=== PATIENT | male | born 1975 | race Caucasian/White ===

== ENCOUNTER 2023-11-10 13:41 | Emergency (ER) | payer OTHER, SELFPAY ==
[2023-11-10] VITALS (27 sets, daily range): BP systolic 158–197; BP diastolic 96–119; PULSE 64–90; RESP 20–24; TEMP 36.1–36.9; O2SAT 92–99; BMI 32.9
[2023-11-10] MEDS: SIMETHICONE/SOD BICARB/CIT AC 1 EACH GRAN.EF.PK PO (13:55)
--- NOTE | 2023-11-10 14:03 | CRLHL7_ITS ---
For Patients: As a result of the Cures Act, medical imaging exams and procedure reports are released immediately into your electronic medical record. You may view this report before your referring provider. If you have questions, please contact your health care provider. INDICATION: Chest pain. Food impaction. COMPARISON: None available. TECHNIQUE: 1 view. FINDINGS: The patient is slightly rotated rightward. Medical Devices: None. Lung Volumes: Adequate inspiration. No significant atelectasis. Lungs: Clear lungs. Pleura and Pleural spaces: No significant pleural effusion. No pneumothorax. Mediastinum: Normal cardiomediastinal silhouette. Bony Thorax and Soft Tissues: No radiopaque foreign body is identified. IMPRESSION: No acute findings. Dictated by Chacorta Diaz MD @ 11/10/2023 2:24:05 PM (Electronically Signed)
[2023-11-10 14:14] LABS: Lactate Sepsis w/Reflex* 3.3 mmol/L (0.5-1.9)
[2023-11-10 14:16] LABS: Basophils Absolute Auto 0.04 K/uL (0.00-0.30); Basophils Percent Auto 0.4 % (0.0-3.0); Eosinophils Absolute Auto 0.51 K/uL (0.00-0.50); Eosinophils Percent Auto 5.3 % (0.0-7.0); Hematocrit 45.8 % (37.0-53.0); Hemoglobin* 15.8 gm/dL (13.5-17.5); Immature Granulocytes Abs Auto 0.03 K/uL (0.00-0.30); Immature Granulocytes Pct Auto 0.3 %; Lymphocytes Absolute Auto 3.67 K/uL (0.90-2.90); Lymphocytes Percent Auto 38.2 % (20-44); Mean Corpuscular HGB Conc 35 gm/dL (32-36); Mean Corpuscular Hemoglobin 31 pg (26-34); Mean Corpuscular Volume 89 fL (80-100); Monocytes Percent Auto 7.3 % (0.0-11.0); Neutrophils Absolute Auto 4.65 K/uL (1.7-7.0); Neutrophils Percent Auto 48.5 % (42.0-72.0); Platelet Count* 254 K/uL (140-440); RDW Coefficient of Variation % 12.5 % (11.5-15.5); Red Blood Count 5.16 m/uL (4.30-5.90)
[2023-11-10] MEDS: 0.9 % SODIUM CHLORIDE 1000 ml 1,000 ML IV (14:16)
[2023-11-10] MEDS: ONDANSETRON 2 MG/ML inj 4 MG IVP (14:16)
[2023-11-10] MEDS: MORPHINE 4 MG/ML INJ IVP ×2 (14:16→17:05)
[2023-11-10 14:21] LABS: Slide Review Reflex No
[2023-11-10 14:32] LABS: Chloride* 102 mmol/L (96-114); Sodium* 137 mmol/L (135-149)
[2023-11-10 14:35] LABS: Est. Creatinine Clearance* 82.63; Estimated Glomerular Filt Rate 92 ml/min
[2023-11-10 14:36] LABS: Blood Urea Nitrogen* 13 mg/dL (7-30); Calcium* 9.1 mg/dL (8.4-10.6); Carbon Dioxide* 26 mmol/L (20-32); Glucose* 113 mg/dL (60-115)
[2023-11-10 14:47] LABS: Anion Gap 9 mEq/L (7-15)
[2023-11-10 14:48] LABS: C Reactive Protein* < 0.5 mg/dL (0.5-1.0)
--- NOTE | 2023-11-10 14:55 | ED_ITS ---
HPI - General Adult General Date Seen: 11/10/23 Chief complaint: Difficulty Swallowing Stated complaint: Chest pain/vomit blood, item lodged in throat Time Seen by Provider: 11/10/23 13:53 Source: patient Mode of arrival: ambulatory Limitations: no limitations History of Present Illness HPI narrative: Patient is a 48-year-old male who presents saying that he was eating a roast beef sandwich for lunch and feels that he has roast beef lodged in his throat. He says he has had difficulty with this for ?years although previously he has always been able to bring up whatever was stuck. Today, he notes pain in his chest, inability to swallow secretions and was vomiting up a little bit of blood, so he came into the ER. He is feeling improved on arrival in terms of the chest pain, but notes that he still feels the food bolus is lodged in his esophagus. He denies prior endoscopy or dilation. He denies prior medical history, he does not smoke or drink excessively. On further conversation with his after her arrival, it sounds as if he has had high blood pressure noted for a while but does not see anyone for medical care and has not been treated. Related Data Home Medications ?Medication ?Instructions ?Recorded ?Confirmed No Known Home Medications 11/10/23 11/10/23 Allergies Allergy/AdvReac Type Severity Reaction Status Date / Time No Known Drug Allergies Allergy Verified 11/10/23 13:43 Review of Systems Status of ROS: Reports: 10 or more systems reviewed and unremarkable except as noted in History and below [facility] Social History Smoking Status: Never smoker How often do you have a drink containing alcohol: monthly or less AUDIT-C Alcohol total score: 1 Non-prescribed substance use: denies use Exam Narrative: Exam Narrative: In general, alert, nontoxic male, comfortable on my initial interaction with him. In easily. Head: Normocephalic, atraumatic. ENT: Airway patent Neck: Supple no adenopathy or stridor. Heart: Regular rate and rhythm without murmur. Lungs: Clear, no crackles or wheezes. Abdomen: Soft nontender. Const: Vital Signs, click to edit/add: Vital Signs - 24 hr 11/10/23 13:43 11/10/23 14:35 11/10/23 15:00 Temperature 96.9 F L Pulse Rate 75 Pulse Rate [Pulse Oximeter] 89 75 Respiratory Rate 24 Blood Pressure Blood Pressure [Ri ght Upper Arm] 197/111 H 177/108 H Pulse Oximetry 99 97 98 Oxygen Delivery Me thod Room Air Room Air 11/10/23 15:15 11/10/23 15:17 11/10/23 15:18 Temperature Pulse Rate 64 71 Pulse Rate [Pulse Oximeter] 68 Respiratory Rate 20 Blood Pressure 181/112 H Blood Pressure [Ri ght Upper Arm] 181/112 H Pulse Oximetry 96 97 97 Oxygen Delivery Me thod Room Air 11/10/23 16:33 11/10/23 16:47 11/10/23 16:48 Temperature Pulse Rate 82 81 Pulse Rate [Pulse Oximeter] Respiratory Rate Blood Pressure 170/105 H 194/112 H Blood Pressure [Ri ght Upper Arm] Pulse Oximetry 95 95 Oxygen Delivery Me thod 11/10/23 17:00 11/10/23 17:02 11/10/23 17:03 Temperature Pulse Rate 79 84 Pulse Rate [Pulse Oximeter] Respiratory Rate Blood Pressure 158/107 H 190/119 H Blood Pressure [Ri ght Upper Arm] Pulse Oximetry 94 94 Oxygen Delivery Me thod 11/10/23 17:24 11/10/23 17:25 11/10/23 17:25 Temperature Pulse Rate 83 88 Pulse Rate [Pulse Oximeter] Respiratory Rate 22 Blood Pressure 172/111 H Blood Pressure [Ri ght Upper Arm] Pulse Oximetry 94 95 Oxygen Delivery Me thod 11/10/23 17:30 11/10/23 17:31 11/10/23 17:45 Temperature Pulse Rate 87 85 77 Pulse Rate [Pulse Oximeter] Respiratory Rate Blood Pressure 161/103 H Blood Pressure [Ri ght Upper Arm] Pulse Oximetry 94 95 95 Oxygen Delivery Me thod 11/10/23 17:47 11/10/23 17:48 11/10/23 18:00 Temperature Pulse Rate 80 82 90 Pulse Rate [Pulse Oximeter] Respiratory Rate Blood Pressure 164/102 H Blood Pressure [Ri ght Upper Arm] Pulse Oximetry 94 94 92 Oxygen Delivery Me thod 11/10/23 18:01 11/10/23 18:15 11/10/23 18:16 Temperature Pulse Rate 87 79 82 Pulse Rate [Pulse Oximeter] Respiratory Rate Blood Pressure 161/96 H 170/102 H Blood Pressure [Ri ght Upper Arm] Pulse Oximetry 94 92 95 Oxygen Delivery Me thod 11/10/23 18:17 11/10/23 18:19 11/10/23 18:30 Temperature 98.4 F Pulse Rate 80 Pulse Rate [Pulse Oximeter] Respiratory Rate 20 20 Blood Pressure Blood Pressure [Ri ght Upper Arm] Pulse Oximetry 95 Oxygen Delivery Me thod 11/10/23 18:30 11/10/23 18:31 Temperature Pulse Rate 83 83 Pulse Rate [Pulse Oximeter] Respiratory Rate Blood Pressure 161/97 H Blood Pressure [Ri ght Upper Arm] Pulse Oximetry 94 94 Oxygen Delivery Me thod Documenting provider has reviewed patient's vital signs: yes Course Course ED Course: Following initial evaluation, we did try EZ gas, he had an increase in pain with that and did not feel as if the food bolus was dislodged at all. Because of the report of chest pain, I did do a chest x-ray to evaluate for free air, by my review this was negative, final radiology read was also negative. I also ordered some basic labs, white count was normal at 9.6 hemoglobin was 15.8. His potassium was somewhat low at 3, electrolytes otherwise normal, lactate was elevated at 2.2 and CRP was less than 0.5. I spoke with our on-call surgeon who agreed with endoscopy to look for esophageal food impaction. Please see her note for details but in summary, patient was taken to endoscopy, was noted to have impacted food at the base of the esophagus but also some surrounding blood and tear was seen near the GE junction which she felt looked likely full- thickness. She did not proceed with removal of the food bolus but procedure was terminated and patient was to return to the ER. He did have some additional chest pain when he woke up and was given 4 mg of morphine. He has been hemodynamically stable although he remains hypertensive. Calls were made initially to [facility] as well as [facility], [facility] was on divert and I initially thought we were going to need to go to a [facility], spoke with thoracic surgery there, and on their recommendation did do a noncontrast CT of the chest. I did not want to give oral contrast given the retained food bolus. Ultimately [facility] was able to accommodate this patient, patient is are very happy with [place]. In the meantime, he was given 40 mg of IV Protonix, he had previously received a L of normal saline, and he was also given Zosyn 3.375 g IV. He has been accepted to [facility] as an ER to ER transfer. Vital Signs Vital signs: Initial Vital Signs Temperature 96.9 F L 11/10/23 13:43 Temperature Source Temporal Artery Scan 11/10/23 13:43 Pulse Rate 89 11/10/23 13:43 Respiratory Rate 24 11/10/23 13:43 Blood Pressure 197/111 H 11/10/23 13:43 Blood Pressure Mean 139 H 11/10/23 13:43 Blood Pressure Position Sitting 11/10/23 13:43 Pulse Oximetry 99 11/10/23 13:43 Oxygen Delivery Method Room Air 11/10/23 13:43 Vital Signs Temperature 96.9 F L 11/10/23 13:43 Pulse Rate 89 11/10/23 13:43 Respiratory Rate 24 11/10/23 13:43 Blood Pressure 197/111 H 11/10/23 13:43 Pulse Oximetry 99 11/10/23 13:43 Oxygen Delivery Method Room Air 11/10/23 13:43 Temperature 98.4 F 11/10/23 18:30 Pulse Rate 83 11/10/23 18:31 Respiratory Rate 20 11/10/23 18:30 Blood Pressure 161/97 H 11/10/23 18:31 Pulse Oximetry 94 11/10/23 18:31 Oxygen Delivery Method Room Air 11/10/23 15:17 Medications Administered Medications: Discontinued Medications Generic Name Dose Route Start Last Admin Trade Name Freq PRN Reason Stop Dose Admin Sodium Chloride 1,000 mls @ 1,000 mls/hr 11/10/23 14:15 11/10/23 15:09 0.9 % Sodium Chloride 1000 Ml IV 11/10/23 15:14 Infused .Q1H ISAEL Infusion Piperacillin Sod/Tazobactam 100 mls @ 100 mls/hr 11/10/23 16:17 11/10/23 18:10 Sod 3.375 gm/ Sodium Chloride IVPB 11/10/23 16:18 Infused ONCE ONE Infusion Morphine Sulfate 4 mg 11/10/23 14:02 11/10/23 14:16 Morphine 4 Mg/Ml Inj IVP 11/10/23 14:03 4 mg ONCE ONE Administration Morphine Sulfate 4 mg 11/10/23 16:57 11/10/23 17:05 Morphine 4 Mg/Ml Inj IVP 11/10/23 16:58 4 mg ONCE ONE Administration Ondansetron HCl 4 mg 11/10/23 14:02 11/10/23 14:16 Ondansetron 2 Mg/Ml Inj IVP 11/10/23 14:03 4 mg ONCE ONE Administration Pantoprazole Sodium 40 mg 11/10/23 16:17 11/10/23 16:44 Pantoprazole Sodium 40 Mg Inj IVP 11/10/23 16:18 40 mg ONCE ONE Administration Simethicone/Sodium Bicarb/Citric Ac 1 each 11/10/23 13:50 11/10/23 15:10 Simethicone/Sod Bicarb/Cit Ac 1 Each Gran.Ef.Pk PO 11/10/23 13:51 Not Given ONCE ONE Medical Decision Making Lab Data Labs: Lab Results 11/10/23 11/10/23 Range/Units 14:05 16:39 WBC 9.60 (4.50-11.00) K/uL RBC 5.16 (4.30-5.90) m/uL Hgb 15.8 (13.5-17.5) gm/dL Hct 45.8 (37.0-53.0) % MCV 89 (80-100) fL MCH 31 (26-34) pg MCHC 35 (32-36) gm/dL RDW Coeff of Yaritza 12.5 (11.5-15.5) % Plt Count 254 (140-440) K/uL Neut % (Auto) 48.5 (42.0-72.0) % Lymph % (Auto) 38.2 (20-44) % [place] % (Auto) 7.3 (0.0-11.0) % Eos % (Auto) 5.3 (0.0-7.0) % Baso % (Auto) 0.4 (0.0-3.0) % Neut # (Auto) 4.65 (1.7-7.0) K/uL Lymph # (Auto) 3.67 H (0.90-2.90) K/uL [place] # (Auto) 0.70 (0.00-0.90) K/UL Eos # (Auto) 0.51 H (0.00-0.50) K/uL Baso # (Auto) 0.04 (0.00-0.30) K/uL Abs Immat Gran (auto) 0.03 (0.00-0.30) K/uL Imm/Tot Granulo (auto) 0.3 % Sodium 137 (135-149) mmol/L Potassium 3.0 L (3.6-5.1) mmol/L Chloride 102 (96-114) mmol/L Carbon Dioxide 26 (20-32) mmol/L Anion Gap 9 (7-15) mEq/L BUN 13 (7-30) mg/dL Creatinine 1.0 (0.5-1.5) mg/dL Estimated Creat Clear 82.63 Estimated GFR 92 ml/min Glucose 113 (60-115) mg/dL Lactate 3.3 H 2.2 H (0.5-1.9) mmol/L Calcium 9.1 (8.4-10.6) mg/dL C-Reactive Protein < 0.5 L (0.5-1.0) mg/dL Discharge Plan Discharge Prescriptions: No Action No Known Home Medications Follow Up/Referrals: Provider,Not a Local [Primary Care Provider] -
[2023-11-10 16:42] LABS: Lactate Sepsis 2 Hour 2.2 mmol/L (0.5-1.9)
[2023-11-10] MEDS: PANTOPRAZOLE SODIUM 40 MG INJ IVP (16:44)
--- NOTE | 2023-11-10 16:44 | W.ANESCHARGE ---
Anesthesia Charges Start Date/Time Anesthesia Start Date: 11/10/23 Anesthesia Start Time: 15:49 Stop Date/Time Anesthesia Stop Date: 11/10/23 Anesthesia Stop Time: 16:30 Summary Emergency: [facility]
--- NOTE | 2023-11-10 16:46 | PM.EN ---
Chart Event Note Date Seen: 11/10/23 Chart Event Note: Patient taken to endoscopy for EGD. History of food bolus 2 hours prior to presentation. Upon intubation of scope evidence of blood within the esophagus. A piece of meat was stuck at the lower esophageal sphincter. Just above the obstruction was evidence of a linear deep mucosal tear, proximally 2 cm in size. No active bleeding but overlying clot present. Procedure was aborted at this time. Patient was transferred to the emergency department with recommendations for transfer to a tertiary care center for further cares.
[2023-11-10] MEDS: PIPERACILLIN/TAZOBACTAM 3.375 GM in 0.9 % SODIUM CHLORIDE Mini-bag 100 ML IVPB (16:48)
--- NOTE | 2023-11-10 16:55 | CRLHL7_ITS ---
For Patients: As a result of the Century Cures Act, medical imaging exams and procedure reports are released immediately into your electronic medical record. You may view this report before your referring provider. If you have questions, please contact your health care provider. Indication: Esophageal perforation, retained food in the esophagus Technique: Volumetric multidetector CT images of the chest were obtained without the administration of IV contrast. Comparison: None available. Findings: The thoracic inlet and thyroid gland are unremarkable. The thoracic aorta is nonaneurysmal. There is no mediastinal, hilar or axillary adenopathy. There is minimal central bronchial thickening. There is basilar atelectasis and parenchymal scar with mild interstitial prominence seen within the upper lobes. There is no pneumothorax or pleural effusion. Demonstration of mild thickening of the mid esophagus with minimal fluid seen. There is minimal pneumomediastinum and air within the posterior mediastinum consistent with history of esophageal rupture. No large paraesophageal fluid collection is identified. The partially visualized upper abdominal viscera are within normal limits. The thoracic vertebral body heights remain intact alignment without significant degenerative change or acute osseous abnormality. Impression: Demonstration of minimal thickening and fluid within the mid esophagus with mild pneumomediastinum with minimal air seen in the posterior mediastinum and dependent prevascular space. Findings are consistent with history of esophageal perforation. No evidence of large fluid collection or pleural effusion. Otherwise, mild chronic interstitial changes with basilar atelectasis and parenchymal scar. No evidence of significant pneumothorax. Please note that all CT scans at this facility use dose modulation, iterative reconstruction, and/or weight-based dosing when appropriate to reduce radiation dose to as low as reasonably achievable. Dictated by Neto Martínez MD @ 11/10/2023 5:46:35 PM (Electronically Signed)
== END 2023-11-10 19:05 | disposition short-term general hospital (02) ==
PROVIDERS: Emergency Provider Emergency Medicine
DX: T18.128A Food in esophagus causing other injury, initial encounter (principal)
CPT/HCPCS: 00731; 36415; 43200; 71045; 71250; 80048; 83605; 85025; 86140; 96365; 96375; 99140; 99284; 99285; J2270; J2405; J2470; J2543; J2704; J3010; J7030

== ENCOUNTER 2023-11-10 18:50 | Outpatient (CLI) | payer OTHER, SELFPAY | END 2023-11-10 18:51 | disposition home or self-care (01) | LOC: AMB 11-25 00:20 | PROVIDERS: Visit Provider Emergency Medicine | DX: K22.3 Perforation of esophagus (principal); T18.128A Food in esophagus causing other injury, initial encounter | CPT/HCPCS: A0425; A0427 ==